=== PATIENT | male | born 1960 | race Hispanic/Latino ===

== ENCOUNTER 2019-07-09 06:34 | Emergency (ER) | payer OTHER, BC, SELFPAY ==
[2019-07-09 06:35] VITALS: BP 157/89; PULSE 104; RESP 12; TEMP 36.8; O2SAT 95; BMI 32.2
--- NOTE | 2019-07-09 06:52 | RAD_ITS ---
STUDY: X-RAY - RIGHT TIBIA AND FIBULA REASON FOR EXAM: Male, 58 years old. Laceration following injury. TECHNIQUE: AP and lateral view(s) of the tibia and fibula were obtained. COMPARISON: None. FINDINGS: Normal visualized tibia. Normal visualized fibula. Soft tissue injury. No radiopaque foreign body is seen. RAD/Tibia & Fibula 2 Views IMPRESSION: Soft tissue injury. Electronically Signed: Keon Cabrera, at 8:10 EST , Service support ,
--- NOTE | 2019-07-09 06:53 | ED.DCSUM_ITS ---
History of Present Illness Chief Complaint: Laceration Informant: Patient Onset: Today Mechanism/Context: Stab Current Severity: Mild Associated Symptoms: Negative for: Parasthesias, Weakness, Loss of function, Inability to ambulate Narrative: Patient is a 58-year-old male with no known past medical history presenting with laceration to his right neves. Patient states he was holding a knife in his hand and picking up a slab of meat and when kneeling down he actually stabbed himself in the right neves. He had a lot of bleeding and please to address a pressure dressing/tourniquet over the wound. Patient is on any blood thinners. He denies any significant pain at this time. He thinks his last tetanus was greater than 10 years ago. He denies associated numbness or tingling. He denies any other injuries at this time. Tetanus Immunization: >10 years Prior similar symptoms: No Past Medical History - Allergies and Home Meds Allergies/Adverse Reactions: Allergies No Known Allergies Allergy (Verified 07/09/19 06:35) Primary Care Physician: [facility] [place] [GROUP OF PHYSICIANS] - Vishnu Morgan MD [Primary Care Provider] - Past Medical History: None Surgical History: noncontributory Smoking Status: Never smoker Review of Systems All systems negative except as indicated Skin: Reports: Wounds - Right neves Physical Exam Vital Signs/Narrative: Vital Signs Temp Pulse Resp BP Pulse Ox 07/09/19 06:35 98.3 F 104 H 12 157/89 H 95 Inital Vital Signs reviewed: Yes General: Well nourished, Well developed Head: Normocephalic, Atraumatic Eyes: Perrl, EOMI Neck: Full ROM Cardiovascular: Regular rate, Regular rhythm, - - 2+ DP pulses Respiratory: No distress Skin: Normal color, - - 1 cm linear full-thickness laceration over proximal anterior right neves, no active bleeding, no surrounding hematoma Neurological: Alert, Oriented x3, Normal Strength, Normal Sensation. Negative for: Parasthesia, Weakness Psychological: Normal affect Diagnostic/Tx/Re-eval - Medical Decision Making Patient has a accidental self-induced laceration to his left neves. She was at work when this happens. This is a Workmen's Compensation case x-ray obtained to rule out any retained foreign body or deeper bony injury. Interpreted by myself and only shows small soft tissue injury. Laceration repair performed. See procedure note. Patient given Motrin and tetanus updated. Patient counseled on generalized wound care. He is counseled that the sutures will need to be removed in approximately 10 days. Patient is counseled on signs and symptoms requiring return to the emergency room. Patient verbalizes agreement and understand this plan. Patient discharged home in stable and improved condition. Laceration No standard instances Length: 0.59 in Depth: Sub Q Shape: Linear Prep: Sterile Conditions, Chlorhexadine Laceration Repair: Lidocaine Irrigated (ml): 300 Number of Sutures/[place]: 2 Stitch Description: Ethilon, Simple, 4-0 Comment: No obvious complication, minimal bleeding ED Disposition - Plan for ED Patient: Disposition: Home or Assisted Living Diagnosis: Laceration of right lower extremity, Need for tetanus, diphtheria, and acellular pertussis (Tdap) vaccine Instructions: LACERATION, Extrem (Suture, Staple or Tape) Referrals: Vishnu Morgan MD [Primary Care Provider] - [facility] [place] [GROUP OF PHYSICIANS] - Additional Instructions: Please follow-up with primary care doctor or Workmen's Comp. for suture removal in 10 to 14 days. Take Tylenol Motrin as needed for pain. Your tetanus was updated today. Return to the emergency room if you have further concerns. Try to keep wound clean and dry. You can apply topical bacitracin ointment as desired.
[2019-07-09] MEDS: Diphth,Pertuss(Acell),Tet Vac 0.5 ML Vial IM (07:40)
[2019-07-09] MEDS: Ibuprofen 600 MG Tablet PO (07:43)
== END 2019-07-09 08:31 | disposition home or self-care (01) ==
PROVIDERS: Emergency Provider Emergency Medicine; Family Provider Family Medicine; PCP Family Medicine
DX: S81.811A Laceration without foreign body, right lower leg, initial encounter (principal); W26.0XXA Contact with knife, initial encounter; Y93.89 Activity, other specified; Y92.9 Unspecified place or not applicable; Z23 Encounter for immunization
CPT/HCPCS: 12001; 73590; 90715; 99283

== ENCOUNTER → 2021-07-17 08:31 | Outpatient (CLI) | payer BC, SELFPAY ==
[2021-07-17 10:25] LABS: Alanine Aminotransfer ALT/SGPT 15 U/L (16-61); Cholesterol 118 mg/dL (200); Creatinine, Serum 0.86 mg/dL (0.70-1.30); EST Glomerular Filtration Rate 97 mL/min (>60); Est Glom Filt Rate - Afr Amer 117 mL/min (>60); High Density Lipoprotein 51 mg/dL; PSA,Total - Annual Screen 1.25 ng/mL (0.00-4.00); Triglycerides 73 mg/dL; Very Low Density Lipoprotein 15 mg/dL (5-40)
== END ==
PROVIDERS: PCP Family Medicine; Referring Provider Family Medicine; Visit Provider Family Medicine
DX: Z00.00 Encounter for general adult medical examination without abnormal findings (principal); Z12.5 Encounter for screening for malignant neoplasm of prostate; E78.6 Lipoprotein deficiency
CPT/HCPCS: 36415; 80061; 82565; 84153; 84460; G0103

== ENCOUNTER → 2021-07-27 13:55 | Outpatient (CLI) | payer BC, SELFPAY ==
--- NOTE | 2021-07-27 14:00 | RAD_ITS ---
INDICATION: UPPER BACK PAIN WITH NECK STIFFNESS EXAMINATION/TECHNIQUE: X-RAY - XR Spine Cervical 6 or More Views COMPARISON: None. FINDINGS: VERTEBRAE: Preserved vertebral body height. No fracture. No spondylolisthesis. Slight straightening of the normal cervical curvature. Mild multilevel degenerative changes with mild facet arthropathy. DISCS: Disc spaces are maintained. NECK SOFT TISSUES: No prevertebral soft tissue widening. LUNG APICES: Clear. RAD/Cerv Spine Obl/Flex/Ext Comp IMPRESSION: 1. No evidence of acute fracture or spondylolisthesis. 2. Slight straightening of the normal cervical curvature can be seen with acute muscle spasm. Electronically Signed: Jcarlos Hinojosa MD at 14:44 EST Tel , Service support ,
--- NOTE | 2021-07-27 14:00 | RAD_ITS ---
INDICATION: PAIN EXAMINATION/TECHNIQUE: X-RAY - LEFT XR Shoulder Min 2 Views 4 VIEWS. AP neutral, internal/external, and scapular Y views were obtained. COMPARISON: None. FINDINGS: No acute fracture or dislocation. Mild acromioclavicular joint degenerative changes with mild osteophytic spurring. Glenohumeral joint is intact. No destructive osseous lesions. Soft tissues are unremarkable. Visualized left lung is clear. No radiopaque foreign bodies. RAD/Shoulder min 2 Views IMPRESSION: No acute findings. Electronically Signed: Jcarlos Hinojosa MD at 8:08 EST Tel , Service support ,
== END ==
PROVIDERS: PCP Family Medicine; Referring Provider Family Medicine; Visit Provider Family Medicine
DX: M25.512 Pain in left shoulder (principal)
CPT/HCPCS: 72052; 73030

== ENCOUNTER 2021-08-20 09:00 | Outpatient (RCR) | payer BC, SELFPAY ==
--- NOTE | 2021-07-17 12:23 | HP.PTEVAL ---
Patient's Visit Information TORREY LUCAS is a 60 year old M referred to Physical Therapy by Dr. Vishnu Morgan MD with a diagnosis of L rotator cuff tendonitis; cervicalgia, chronic LBP. Date of Evaluation: 07/17/21 Physical Therapist: James Elias DPT - Visit Plan Frequency: 2x /Week Duration: 4 Weeks Plan: Improve L shoulder ROM, strengthen Rotator cuff muscles. Progress HEP as tolerated. - Subjective Pt presents to PT with pain in his shoulder, as well as neck pain and low back pain. 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 He states now anytime he lifts anything to shoulder level, is when he has experiences pain, if he lifts or holds heavy objects that also aggravates his left shoulder. PT states he has not been sleeping well, waking up 6-7 times per night. 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 Pt reports he has been having challenges getting dressed with over head movements. Pt also states he has LBP that has occurred for 20 years, as well as a diagnosed umbilical hernia which he is supposed to get surgery for. Pt goals for therapy are to reduce shoulder and neck pain. - Pain Left Shoulder Pain Intensity (Out of 10): 8 Pain Intensity Range: 0, 5, 9 Comment: Only pain with movement Neck Pain Intensity (Out of 10): 6 Pain Intensity Range: 3, 7 Back Pain Intensity (Out of 10): 4 Pain Intensity Range: 4, 5 - Objective STRENGTH: Right shoulder all 5/5 Left shoulder: flexion: 4+, abduction 4+ , ER 4 (limited by pain), IR 4+ ; elbow flexion 5, extension 5 ; limited L cervical rotation. ROM : Right shoulder flexion 0- 182 L : AROM flexion 0- 140, PROM 0-135 (empty end feel), AROM: IR 43 degrees, ER 55 degrees. PALPATION: tenderness on L bicipital tendon origin, TTP on right levator scap, upper trap region - Special Tests C/S Radiculapathy - Left Spurlings: Negative C/S Radiculapathy - Right Spurlings: Negative L Shoulder Empty Can - SS: Positive L Shoulder Neer - Impingement: Negative L Shoulder Clark Malik - Impingement: Negative L Shoulder Biceps Load Test - Labrum: Positive L Shoulder Yeargasons - SLAP: Positive L Shoulder Speeds Test - Labrum/Biceps: Positive - Balance/Special Test Scores Quick DASH Score: 68.1800 - Goals Goal 1:: Pt will be independent with HEP Goal Time Frame: 2-4 Weeks Goal 2:: LTG: Pt will improve all L shoulder strength to 5/5 Goal 3:: STG: Pt will improve L shoulder flexion to 180 degrees Goal Time Frame: 2-4 Weeks Goal 4:: LTG: Patient will sleep through the night with 0/10 shoulder pain. Goal Time Frame: 2-4 Weeks Goal 5:: LTG: Pt will be able to get dressed with 0-2/10 pain. Goal Time Frame: 2-4 Weeks - Rehabilitation Potential Physical Therapy Diagnosis: L shoulder pain, L rotator cuff weakness, limited L shoulder ROM. Pt. has signs and symptoms consistent with RTC pathology. He would benefit from PT to work on the above limitations progressing to all functional and work activities. Rehabilitation Potential: Good - Anticipated Interventions Patient/Client Instruction: Educate patient on: Condition, Plan of Care, Risk Factors, Benefits of Fitness Program For the Purpose of:: To decrease pain, To increase ROM, To improve nutrient delivery to tissue, To improve ability to perform ADL's, To improve health of tissue, To decrease soft tissue restriction, To increase flexibility/ROM Therapeutic Exercise to Include: Strength training, Postural training, Flexibilty training, Passive ROM, Active ROM, Scapular Strength/Stabilization For the Purpose of:: To decrease pain, To decrease swelling/inflammation, To increase ROM, To improve nutrient delivery to tissue, To improve ability to perform ADL's, To improve health of tissue, To decrease soft tissue restriction, To increase flexibility/ROM, To improve tolerance to ADL's Manual Therapy Techniques to Include: Massage, Mobilization, Passive ROM, Soft tissue mobilization For the Purpose of:: To decrease pain, To decrease swelling/inflammation, To increase ROM, To improve muscle performance and motor function, To improve ability to perform ADL's, To increase flexibility/ROM TENS: Yes Cryotherapy (ice pack, ice massage): Yes Thermo therapy (hot pack): Yes For the Purpose of:: To decrease pain, To decrease swelling/inflammation, To increase ROM Thank you for the opportunity to evaluate your patient. For Medicare and Medicare HMO plans, please review the plan of care and approve it. It will need to be FAXED BACK to us at [phone] for Medicare purposes. For Medicare only, by signing this I certify the plan of care. Please let me know if there are questions or concerns regarding this plan of care. Physician Signature: Date:
--- NOTE | 2021-08-20 09:40 | HP.PTDCSUM ---
It has been my pleasure to treat TORREY LUCAS referred by Dr. Vishnu Morgan MD, with the diagnosis of L rotator cuff tendonitis; cervicalgia, chronic LBP for a total of 9 visit(s). Discharge Date: 08/20/21 Please see the following information for a summary of their discharge status. Subjective: Pt reports he is to see the orthopedic doctor on the . Pt states that he believes therapy has helped a little bit, but pain persists in his left shoulder and he believes he can continue strengthening at home with HEP. Left Shoulder Pain Intensity (Out of 10): 4 Neck Pain Intensity (Out of 10): 0 Back Pain Intensity (Out of 10): 0 % Improvement: 40 Objective/Function: Strength: Left shoulder : flexion 4+/5, abduction 5/5, extension 5/5, IR 4+/5 (limited by pain), ER 4+/5 (limited by pain). ROM: left shoulder flexion: 150 deg. Pt continues to experience symptoms of pain, and not moving towards goals as I would like. At this time, patient is to visit orthopedic doctor and will determine future course of action. Goal 1:: Pt will be independent with HEP Goal Progress: Goal Met Goal 2:: LTG: Pt will improve all L shoulder strength to 5/5 Goal Progress: Progressing Goal 3:: STG: Pt will improve L shoulder flexion to 180 degrees Goal Progress: Progressing Goal 4:: LTG: Patient will sleep through the night with 0/10 shoulder pain. Goal Progress: Not Progressing Goal 5:: LTG: Pt will be able to get dressed with 0-2/10 pain. Goal Progress: Not Progressing Plan: D/C PT. Discharge Comments: Pt. was seen in Pt for this L shoulder pain. Pt. has had some small improvements, but still is having pain with lifting, end ranges of flexion. He is tool tender over his bicipital groove with + speeds testing. Pt. was given HEP to work on and follow up with physician as needed. If there are questions or concerns regarding this patient's physical therapy, please feel free to call me at [phone]. Thank you for the referral of this patient. Sincerely, James Robles Sipos, DPT Balance/Gait/Functional tests - Balance/Special Test Scores Quick DASH Score: 47.7250
== END 2021-08-20 19:00 | disposition home or self-care (01) ==
LOC: PT 09:00
PROVIDERS: PCP Family Medicine; Referring Provider Family Medicine; Visit Provider Family Medicine
DX: M75.102 Unspecified rotator cuff tear or rupture of left shoulder, not specified as traumatic (principal); M54.2 Cervicalgia; M54.50 Low back pain, unspecified; G89.29 Other chronic pain
CPT/HCPCS: 97110; 97162; 97164

== ENCOUNTER 2024-01-03 06:45 | Outpatient (RCR) | payer BC, SELFPAY ==
--- NOTE | 2024-01-03 10:11 | HP.OTFCE_ITS ---
Task Lift Floor (Occasional 1-33% of Day): 25 Floor (Frequent 34-66% of Day): 12.5 Floor (Constant 67-100% of Day): 5.26 Floor PDL: Light Knee (Occasional 1-33% of Day): 25 Knee (Frequent 34-66% of Day): 12.5 Knee (Constant 67-100% of Day): 5.26 Knee PDL: Light Waist (Occasional 1-33% of Day): 35 Waist (Frequent 34-66% of Day): 17.5 Waist (Constant 67-100% of Day): 7.3 Waist PDL: Light-Medium Shoulder (Occasional 1-33% of Day): 25 Shoulder (Frequent 34-66% of Day): 12.5 Shoulder (Constant 67-100% of Day): 5.26 Shoulder PDL: Light Overhead (Occasional 1-33% of Day): 25 Overhead (Frequent 34-66% of Day): 12.5 Overhead (Constant 67-100% of Day): 5.26 Overhead PDL: Light Comments: pt performing at light lifting capacity for floor, knee, shoulder as well as overhead lifting patterns. pt performing at light- medium for waist level lifting pattern. pt rossy does increase during lifts and HR rises with increased weight and overhead lifting tasks. occ compensatory movements utilized due to back pain. pt pain rising to 9/10 and remaining during lifts reported in lumbar spine. Work Activity/Posture Bending: Frequent Ability (34-66% of day) Comments: slow pace increased pain with bending as well as elevating HR Squatting: Frequent Ability (34-66% of day) Comments: slow pace increased pain with squatting narrow stance and elevating HR Kneeling: Frequent Ability (34-66% of day) Comments: slow pace increased pain with kneeling single knee elevating HR Reaching out: Frequent Ability (34-66% of day) Reaching up: Frequent Ability (34-66% of day) Comments: reports increased pain in neck and LUE shoulder during task Sitting: Frequent Ability (34-66% of day) Walking: Frequent Ability (34-66% of day) Standing: Frequent Ability (34-66% of day) Reference Reference: Duration Sedentary Sedentary Light Light Light Medium Medium Medium Heavy Very Heavy Heavy Occasional (0-33% of day) Frequent (34-66% of day) Constant (67-100% of day) 10 # Negligible Negligible 15 # 8 # Negligible 20 # 10# Negli. 35 # 18 # 7 # 50 # 25 # 10 # 75 # 100 # >100 # 38 # 50 # >50 # 15 # 20 # >20 # Patient Information Height: 6 ft Weight:: 234 kg Hand Dominance: R Medical History Medical History Including Restrictions: This 63 year old male with spinal sx for herniated disc one year ago followed by therapy. This pt is unable to specify exact date of sx and or exact procedure performed. pt reports back pain persistent and lasted approx 15 years before the completion of sx. As a result pt with increased difficulty working. pt applied for disability resulting in need for FCE. pt reports feeling achy every day with increased difficulty lifting items. Pt back pain runs down L side of leg into ankle causing his ankle to feel numb. pt with soreness in neck as well as L shoulder. pt denies other conditions impacting current physical performance. Diagnoses Diagnoses: DDD chronic back pain R leg laceration obesity umbilical hernia varicose veins BLE Symptoms Symptoms: soreness in neck as well as L shoulder increasing difficulty to lift items soreness in back that runs down L leg into ankle Pain Pain: pt takes Ibprofen 200 MG as needed Lidocaine pain relief 4% patch 12 hours daily gabapentin 800mg 1/2 to 1 tablet at bedtime tramadol HCI 50MG oral twice daily as needed pain in the morning 8-9/10 pain at rest 6/10 pt reports pain increases significantly with activity as well as with work Dharmesh pain score 21/78 Work History Work History: 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 Behavioral Behavioral: cooperative and pleasant throughout FCE ADLS ADLS: Pt lives at home with family in single story home. Pt has approx 7 stairs to enter home. Pt is I in ADL tasks pt performs some cleaning family assists in cooking. pt does not complete yard work this is done by family. pt drives and completes community tasks such as grocery shopping. pt bathroom with t/s combo no AD at this time and standard commode. no pets. Physical Examination Physical Examination: pt presents this date for FCE eval no AD needed for mobility. slow gait pattern slow movements due to stiffness and pain in spine. pt does stretch neck by rolling throughout FCE. pt baseline HR at rest 69bpm. ROM: BUE AROM WFL BLE AROM WFL Strength: Fet2 Peak Force Strength Assessment L shoulder flexion 16.2# R shoulder flexion 30# L bicep 35# R bicep 38# L tricep 16# R tricep 16# L hip flexor 22# R hip flexor 35# L quad 19# R quad 23# L hamstring 19# R hamstring 21# Right Hydro Pneumatic Tester Strength Average: 79.33 Right Hydro Pneumatic Tester Strength Percentile: 15.9 Left Hydro Pneumatic Tester Strength Average: 61.66 Left Hydro Pneumatic Tester Strength Percentile: <5.6 Right Lateral Pinch Average: 17.00 Right Lateral Pinch Percentile: 25th Left Lateral Pinch Average: 12.00 Left Lateral Pinch Percentile: <10th Right Tripod Pinch Average: 9.33 Right Tripod Pinch Percentile: <10th Left Tripod Pinch Average: 8.00 Left Tripod Pinch Percentile: < 10th Comments: pt does report pain sensation that runs up the arm when completing destination imagination coordinator as well as pinch assessment pt does report difficulty with opening small packages and completing zippers, buttons ect Sensation: semmes- caro monofilament sensory testing L hand 3.84 all digits and hand indicating diminished protective sensation denies impairments in R hand Fine Motor: 9 hole peg assessment complete R hand 36 sec indicating pt is <0 percentile for average for his age L hand 45 sec indicating pt is <0 percentile for average for his age Balance: HR at baseline 69 bpm standing forward reach assessment score 10 indicating pt at moderate risk for falls Non Material Handling Activities Bending: bend x3/3 HR 84 bpm then bend x10/10 HR 84 bpm pain 8/10 then rapidly 10/10 HR 88 bpm pain 9/10 pt uses opposite arm as support on leg during task no external support needed switches arms to retrieve item group home through Squatting: squat x3/3 HR 106 bpm and pain 7/10 squat x10/10 HR 98 bpm with pain 7/10 rapidly bending 10/10 HR 119 bpm pain at 7/10 close stand squat no external support needed back straight throughout Kneeling: kneel x3/3 HR 107 next kneel at own pace 10/10 HR 104 bpm pain rating 9/10 rapidly pt completes 10/10 HR 120 pain 9/10 single leg kneel slow pacing with need for support of self with hand once kneeling . no external support of object for task. switches legs for rapid completion Reaching out/up: reaching out x3/3 HR 105 bpm then x10/10 HR 100 bpm then rapidly 10/10 HR 96 bpm pain 7/10 reaching up x3/3 HR 97 bpm then own pace 10/10 HR 100 bpm then rapidly 10/10 bpm with pain 8/10 good form during task pt rolls neck to stretch during task due to neck pain Walking: walks around [employer] x2 then additional time, up and down stairs no RB HR 97 bpm no AD needed reciprocal gait pattern able to manage turns appropriately as well as doorways 1,146 feet Standing: assessed informally - pt is able to stand for the completion of physical portion of assessment plus the completion of walking assessment and then after for completion of intake assessment forms approx 60 min duration Sitting: not formally assessed sits for intake approx 30 min during information gathering pt does state he normally will sit for about 5 min then need to stand to stretch a bit Climbing Stairs: able to ascend flight of 10 steps with reciprocal step pattern external support of bar; descends by compensating facing hand rail and step to pattern Dynamic Occasional Lifting Capacity Floor Lift: floor lift 10 pound plus 15 for box HR 97 bpm (25 total) reports light pinching pain in lower back at 9/10 pain Knee Lift: knee lift 10 pounds plus box at 15 pounds HR 108 bpm (25 total) pain at 9/10 reports using more of upper body to compensate during task Waist Lift: 20 pounds plus 15 for box HR 99 bpm pain 9/10 (35 total) Shoulder Lift: 10 pounds plus 15 of box HR 95bpm pain 9/10 pain (25 total) Overhead Lift: 10 pounds plus 15 for box HR at 115 bpm and pain at 9/10 pain (25 total) uses lunge positioning for lift slow pace Carryin pounds plus 15 pounds for box carry across OT therapy room and back (51 feet) HR 96 bpm pain 9/10 (25 total) hold load close to body waist level Comments: Pt HR does rise with overhead lifting movements and pt reports increased lower back pain during lifting tasks. pt is definitive with answers during lifting task with inability to lift more weight.
--- NOTE | 2024-03-30 09:18 | HP.OTFCE.D ---
FCE D/C Summary Discharge text: TORREY XIN LANCE was seen for a one time visit for an FCE on 01/03/24 and is discharged.
== END 2024-01-03 19:00 | disposition home or self-care (01) ==
LOC: OT 06:45
PROVIDERS: PCP Family Medicine; Referring Provider Family Medicine; Visit Provider Family Medicine
DX: M51.36 Other intervertebral disc degeneration, lumbar region (principal)
CPT/HCPCS: 97750

== ENCOUNTER 2024-02-06 08:56 | Day surgery (SDC) | payer BC, SELFPAY ==
[2024-02-06] VITALS (7 sets, daily range): BP systolic 130–138; BP diastolic 76–88; PULSE 66–75; RESP 14–16; TEMP 36.7–36.9; O2SAT 96–99; BMI 32.0
--- NOTE | 2024-02-06 09:12 | PCM.HP.STD ---
HPI - General General Date of Service: 02/06/24 HPI Adelaide LUCAS, is a 63 M who presents for umbilical hernia repair with mesh. Patient denies any changes since his last office visit. office visit 01/02/24 [facility] HPI: 63-year-old male presents due to umbilical hernia. Patient states he has had this for about a year and a half states he does have pain at the umbilicus and is able to reduce it. Patient states will have pain with increased lifting. Patient denies having any abdominal surgeries. [facility] Medical History (Updated 01/31/24 @ 10:47 by Donna Stokes) Wears glasses Back pain Non-smoker History of pain when walking Varicose veins of both lower extremities with inflammation Obesity Laceration of leg, right Home Medications ?Medication ?Instructions ?Recorded ?Last Taken ?Type gabapentin 800 mg tablet 800 mg PO QHS 01/02/24 Unknown History tramadol 50 mg tablet 50 mg PO BID PRN PRN pain 01/02/24 Unknown History Allergy/AdvReac Type Severity Reaction Status Date / Time No Known Allergies Allergy Verified 02/06/24 09:53 Family History Grandmother Cancer Surgical History (Updated 01/31/24 @ 10:47 by Donna Stokes) Hx of foot surgery History of back surgery History of right inguinal hernia repair Social History (Updated 01/02/24 @ 15:00 by Trinidad Bowden) Smoking Status: Never smoker alcohol intake: never substance use type: does not use Vital Signs Vital Signs Vital Signs: Weight Weight: 236 lb Physical Exam Const alert, oriented x3 and no apparent distress HEENT normocephalic and head/scalp atraumatic Resp normal respiratory effort Cardio regular rate GI soft to palpation and non-tender; Negative for non-distended GI Narrative: Umbilical hernia mostly reducible about a centimeter. Palpation: Negative for guarding Extremity no clubbing, cyanosis or edema Skin no rashes or lesions noted Neuro CN's II-XII intact bilaterally Psych mental status grossly normal Assessment & Plan Assessment/Plan (1) Umbilical hernia without obstruction and without gangrene: PLAN: Plan Plan to do an umbilical hernia repair with mesh. Reviewed the procedure with the patient including the risks, including but not limited to infection, bleeding, injury to the small bowel, and recurrence. All questions were answered. Meeta Pantoja M.D. Pager: [phone] [facility] [address] [place] [address], [address] [place] [address] Office: [phone]
--- NOTE | 2024-02-06 09:22 | EKG12_ITS ---
Test Reason : pre op Blood Pressure : / mmHG Vent. Rate : 066 BPM Atrial Rate : 066 BPM P-R Int : 170 ms QRS Dur : 096 ms QT Int : 400 ms P-R-T Axes : 036 066 043 degrees QTc Int : 419 ms Normal sinus rhythm Normal ECG No previous ECGs available Confirmed by CHERY LUGO, ELEANOR ([id number]), field map editor DELON AMARAL ([id number]) on 02/08/2024 2:15:19 PM Referred By: Meeta Pantoja Confirmed By:ELEANOR GOTTLIEB MD
[2024-02-06] MEDS: Lactated Ringers 1,000 ML 15 ML IV ×2 (10:10→12:15)
[2024-02-06] MEDS: Cefazolin 2 GM in 0.9% Normal Saline (100mL Bag) 100 ML IV (10:44)
--- NOTE | 2024-02-06 11:27 | PCM.OPRPT ---
Report of Operation Date of Procedure: 02/06/24 Pre-Operative Diagnosis: umbilical hernia Post-Operative Diagnosis: Incarcerated umbilical hernia Surgery/Procedure Performed:: Incarcerated umbilical hernia repair with mesh Surgeon: Meeta Pantoja anode machine operator: Judd Zepeda Type of Anesthesia: General/Supplemental Anesthesiologist: Ham Stein Special Medications: Ancef 2 g IV x 1 Specimen's removed: None Estimated Blood Loss (mL): < 10 cc Description of Procedure: Patient was brought into the room placed supine on the operating table. Correct patient, procedure, site, positioning, special, was verified prior to procedure. General anesthesia was induced. The abdomen was prepped draped in usual sterile fashion. A curvilinear incision was made below the umbilicus with a 15 blade scalpel. This was deepened with electrocautery. A hemostat was used to go around the stalk of the umbilicus and Metzenbaum scissors was used to carefully divide the hernia sac from the skin of the umbilicus. The fascia around the hernia defect was cleared and the hernia defect measured 1.1 x 1.1 cm. A small 4.[address] hernia patch was used and secured superior/inferior at the tails with 0 Prolene mattress sutures. 0 Prolene suture was placed to close the fascia in a [id number] including the mesh inferiorly and superiorly. The wound was irrigated with saline. Hemostasis was assured. The skin of the umbilicus was secured to the fascia using 3-0 Vicryl suture interrupted. The incision was closed with 3-0 Vicryl subdermal interrupted sutures and the skin was closed with interrupted 4-0 Monocryl sutures. Steri-Strips and Tegaderm and OpSite were placed over the incision once sterile cotton balls were placed in the umbilicus. Patient was extubated. Patient tolerated procedure well and was taken to the postanesthesia care unit in stable condition. Grafts/Implants Used: Ventralex ST hernia patch Lot [id number] [id number] Complications None
--- NOTE | 2024-02-06 11:29 | DCINST_ITS ---
Discharge Instructions Diet Discharge Diet: Light diet - advance as tolerated Activity May shower in (days): 5 (Keep umbilical dressing clean dry and intact for 5 days. Okay to tape off with a Ziploc bag to shower. Or lower shower and upper sponge bath.) Lifting Restrictions: no lifting >20 lbs x 2 wks, no strenuous exercise for 4 wks Additional Activity Instructions:: - Dressing / Incision Call your doctor if your incision/area has: Continuous Slow Oozing, Sudden Increased Bleeding, Increased Pain/ Swelling, Increased Redness, Foul Smelling Discharge and Swelling at the incision site Call your doctor if you observe: Fever of 101 or Higher Remove Dressing in: 5 days (After 5 days okay to remove surgical dressing. Place cotton ball or rolled up gauze in bellybutton and retape daily for 2 more days.) Cleanse incision/area with: Do not get Incision Wet (for 5 days) Additional Dressing/Incision Instructions:: Steri-Strips will fall off in 7 to 10 days, if they do not fall off okay to remove after 10 days. Follow Up Care Please Follow Up With: Meeta Pantoja MD When: Call the office for a follow-up appointment 2 weeks; after 5 PM and on the weekends call [phone] with any concerns. Test Results: Test results from this visit will be discussed in further detail at your follow- up appointment, if applicable. Discharge Plan Admission Attending Provider: Meeta Pantoja Primary Care Provider: Vishnu Morgan Instructions Print Language: Romanian Discharge Orders/Prescriptions Prescriptions: New tramadol 50 mg tablet 50 mg PO Q6H PRN (Reason: pain) 3 Days Qty: 10 0RF Continued tramadol 50 mg tablet 50 mg PO BID PRN PRN (Reason: pain) gabapentin 800 mg tablet 800 mg PO QHS Referrals / Follow Up: Vishnu Morgan MD [Primary Care Provider] - Disposition Disposition (needs filled in before D/C Order can be placed): Home, Self Care
[2024-02-06] MEDS: Bupivacaine Mpf 0.5% 30 ML VIAL (11:30)
== END 2024-02-06 13:08 | disposition home or self-care (01) ==
LOC: SDC 09:04 → AC 09:06
PROVIDERS: PCP Family Medicine; Referring Provider Surgery; Visit Provider Surgery
PROC: (CPT 49592; principal; 2024-02-06 11:00)
DX: K42.0 Umbilical hernia with obstruction, without gangrene (principal)
CPT/HCPCS: 49592; 93005; J7120; C1781; J2405

== ENCOUNTER → 2025-04-26 | Outpatient (CLI) | payer BC, SELFPAY ==
[2025-04-26 10:12] LABS: Hematocrit 40.4 % (40-54); Hemoglobin 13.7 g/dL (13.0-16.5); Immature Granulocytes Count 0.060 X10^3/uL (0.0-0.0); Mean Corp Hgb Conc 33.9 g/dL (32-36); Mean Corpuscular Volume 85.1 fL (80-94); Mean Platelet Vol. 9.6 fl (6.2-12.0); NRBC Flagged by Analyzer 0 % (0-5); Platelet Count 299 K/mm3 (150-450); RBC Distribution Width CV 12.6 % (11.6-14.6); RBC Distribution Width SD 39.2 fl (35.1-43.9); Red Blood Count 4.75 M/mm3 (4.6-6.2); White Blood Count 5.5 K/mm3 (4.4-11.0)
[2025-04-26 10:38] LABS: Creatinine, Urine (random) 158.00 mg/dL (39.00-259.00); Microalbumin,Random Urine < 12.0 mg/L (<20 mg/L)
[2025-04-26 10:54] LABS: AST(SGOT) 17 U/L (<=37); Alanine Aminotransfer ALT/SGPT 10 U/L (<=46); Albumin, Serum 3.8 g/dL (3.4-4.8); Alkaline Phosphatase 75 U/L (40-129); Anion Gap 9 (5-15); BUN 21 mg/dL (4-19); BUN/Creat Ratio 24.4 RATIO (10-20); Calcium,Total 9.2 mg/dL (7.6-11.0); Carbon Dioxide 25.8 mmol/L (21.0-32.0); Chloride 104 mmol/L (98-108); Cholesterol 126 mg/dL (<=200); Globulin 2.9 g/dL (2.2-4.2); Glucose 95 mg/dL (70-99); Low Density Lipoprotein Calc. 57 mg/dL; PSA,Total - Annual Screen 1.33 ng/mL (0.02-4.00); Potassium 4.4 mmol/L (3.3-5.1); Triglycerides 74 mg/dL; Very Low Density Lipoprotein 15 mg/dL (5-40); cholesterol:hdl ratio screen 2.33
== END | disposition home or self-care (01) ==
LOC: MTLAB 08:09
PROVIDERS: PCP Family Medicine; Referring Provider Family Medicine; Visit Provider Family Medicine
DX: I10 Essential (primary) hypertension (principal); Z12.5 Encounter for screening for malignant neoplasm of prostate
CPT/HCPCS: 36415; 80053; 80061; 82043; 82570; 84153; 85025; G0103